=== PATIENT | female | born 2000 | race Two or more races ===

== ENCOUNTER 2023-09-24 22:18 | Emergency (ER) | payer MEDICAID, OTHER ==
[~2023-09-24] VITALS: Ht 157.5 cm; Wt 98.0 kg
[2023-09-25] MEDS: MORPHINE SULFATE 4 MG/ML SYR/VIAL IV ONE (01:20)
[2023-09-25] MEDS: PIPERACILLIN-TAZOB 3.375GM 100 ML IV ONE (01:21)
[2023-09-25] MEDS: ONDANSETRON HCL 4 MG/2 ML VIAL IV ONE (01:21)
[2023-09-25 01:22] VITALS: PULSE 86; RESP 16; O2SAT 99
[2023-09-25] MEDS: CEFEPIME 1GM/ 50ML 50 ML IV ONE (03:40)
[2023-09-25] MEDS: SODIUM CHLORIDE 0.9% 1,000 ML IV ONE (04:37)
[2023-09-25 04:53] LABS: Chloride 109 mmol/L (98-107); Potassium 3.8 mmol/L (3.5-5.1); Sodium 140 mmol/L (136-145)
[2023-09-25 04:54] LABS: Anion Gap 6 (5-15); Calcium 9.2 mg/dL (8.7-10.4); Carbon Dioxide 25 mmol/L (20-30)
[2023-09-25 04:59] LABS: BUN/Creatinine Ratio 5.9 (10.0-20.0); Blood Urea Nitrogen 5 mg/dL (9-23); Glucose 97 mg/dL (74-106)
[2023-09-25 06:04] VITALS: BP 107/57; PULSE 79; RESP 13; TEMP 98; O2SAT 96
[2023-09-25 06:30] LABS: Basophils # (auto) 0 10 ^3/uL (0-0.2); Eosinophils # (auto) 0.1 10 ^3/uL (0-0.8)
[2023-09-25 06:32] LABS: Basophils % (auto) 0.4 % (0.0-2.0); Hematocrit 37.6 % (36.0-46.0); Hemoglobin 12.2 g/dL (12.2-16.2); Lymphocytes # (auto) 3.4 10 ^3/uL (0.4-5.4); Lymphocytes % (auto) 41.1 % (10.0-50.0); Mean Corpuscular Hemoglobin 24.6 pg (28.0-32.0); Mean Corpuscular Hgb Conc. 32.3 g/dL (32.0-36.0); Mean Corpuscular Volume 76.1 fL (80.0-100.0); Monocytes # (auto) 0.6 10 ^3/uL (0-1.3); Monocytes % (auto) 6.7 % (0.0-12.0); Neutrophils # (auto) 4.2 10 ^3/uL (1.6-8.6); Neutrophils % (auto) 50.8 % (37.0-80.0); Nucleated Red Blood Cells % 0.2 %; Red Blood Cells 4.94 10^6/uL (4.0-5.20); Red Cell Distribution Width 15.4 % (11.8-14.3); White Blood Cell 8.3 10^3/uL (4.4-10.8)
== END 2023-09-25 06:08 | disposition short-term general hospital (02) ==
LOC: ER 22:18
DX: N70.93 Salpingitis and oophoritis, unspecified (principal)
CPT/HCPCS: 36415; 76830; 76856; 80048; 83605; 96365; 96366; 96367; 99285; J0692; J2270; J2405; J2543